=== PATIENT | male | born 1995 | race Caucasian/White ===

== ENCOUNTER 2018-03-27 00:09 | Emergency (ER) | payer OTHER ==
[~2018-03-27] VITALS: Ht 160 cm; Wt 56.7 kg
[2018-03-27 00:25] VITALS: BP_SYST 120
[2018-03-27] MEDS ORDERED: DIPH-TET-PERTUS Vaccine 0.5 ML VIAL (ADACEL) I.M. ONE (02:00)
[2018-03-27] MEDS ORDERED: BACITRACIN 1 GM OINT TP ONE (02:13)
[2018-03-27] MEDS ORDERED: ACETAMINOPHEN 500 MG TABLET PO ONE (02:15)
[2018-03-27] MEDS ORDERED: CEPHALEXIN 500 MG CAPSULE PO ONE (02:15)
[2018-03-27 02:30] VITALS: BP_SYST 116
== END 2018-03-27 02:30 ==
LOC: SED 00:09
DX: S61.512A Laceration without foreign body of left wrist, initial encounter (principal); V89.2XXA Person injured in unspecified motor-vehicle accident, traffic, initial encounter; Y93.89 Activity, other specified; Y92.89 Other specified places as the place of occurrence of the external cause; Y99.8 Other external cause status
CPT/HCPCS: 12001; 73130; 90471; 90715; 99283; J7030